=== PATIENT | male | born 1995 | race Two or more races ===

== ENCOUNTER 2023-04-28 19:29 | Emergency (ER) | payer MEDICAID, OTHER ==
[~2023-04-28] VITALS: Ht 167.6 cm; Wt 84.0 kg
[2023-04-28 19:29] VITALS: BP 129/79; PULSE 80; RESP 20; TEMP 98.2; O2SAT 98
[2023-04-28] MEDS ORDERED: CYCL-839 PO (22:08)
[2023-04-28] MEDS ORDERED: IBUP1TAB5 PO (22:08)
== END 2023-04-28 22:19 | disposition home or self-care (01) ==
LOC: ER 19:29
DX: M62.830 Muscle spasm of back (principal)
CPT/HCPCS: 72100